=== PATIENT | female | born 2000 | race Hispanic/Latino ===

== ENCOUNTER 2019-01-25 02:39 | Emergency (ER) | payer OTHER ==
[~2019-01-25] VITALS: Ht 162.6 cm; Wt 54.0 kg
[2019-01-25 03:10] VITALS: BP 104/55
--- NOTE | 2019-01-25 08:01 | REP ---
Right hand four views : There is no fracture or dislocation. Mineralization and joint spaces are normal. There are no calcifications or foreign bodies. Impression: Negative right hand . Electronically Signed by Saul Parham MD 01/25/2019 07:52 A
== END 2019-01-25 03:19 | disposition home or self-care (01) ==
LOC: M ED 02:39
DX: S60.221A Contusion of right hand, initial encounter (principal); W22.8XXA Striking against or struck by other objects, initial encounter; Y92.89 Other specified places as the place of occurrence of the external cause